=== PATIENT | male | born 1990 | race Caucasian/White ===

== ENCOUNTER 2017-05-29 15:59 | Emergency (ER) | payer OTHER ==
[~2017-05-29] VITALS: Ht 185.4 cm; Wt 111.2 kg
[~2017-05-29 15:59] MED LIST: ADDERALL XR 2020 MG PO; BACTRIM,SEPT1 TABLET PO; BENTYL20 MG PO; CELEXA40 MG PO; CLEOCIN300 MG PO; ENDOCET 5-3251 EACH PO; KEFLEX500 MG PO; LOMOTIL TABLET1 EACH PO; NAPROSYN500 MG PO; PERCOCET 5/31 TABLET PO; PRILOSEC40 MG PO; PROMETHAZINE HC25 M1 PO; RISPERDAL2 M1 PO; SEROQUEL100 MG PO; TRAMADOL HCL50 MG PO; ULTRAM50 MG PO; VENTOLIN HFA18 GM IH
[2017-05-29] MEDS ORDERED: PREDNISONE20 MG PO (17:26)
[2017-05-29 17:53] VITALS: BP 142/72
== END 2017-05-29 17:55 | disposition home or self-care (01) ==
LOC: EME 15:59
DX: T63.441A Toxic effect of venom of bees, accidental (unintentional), initial encounter (principal); R20.0 Anesthesia of skin; L29.9 Pruritus, unspecified; J45.909 Unspecified asthma, uncomplicated; F90.9 Attention-deficit hyperactivity disorder, unspecified type; F31.9 Bipolar disorder, unspecified; F17.200 Nicotine dependence, unspecified, uncomplicated; Z88.0 Allergy status to penicillin
CPT/HCPCS: 99281; 99284; J0171; J2930; J7644

== ENCOUNTER 2017-07-05 17:36 | Inpatient (IN) | payer OTHER ==
[~2017-07-05] VITALS: Ht 190.5 cm; Wt 108.0 kg
[~2017-07-05 17:36] MED LIST changes: +PREDNISONE20 MG PO
[2017-07-05 20:29] LABS: BASOPHIL COUNT 0.1 K/uL (0-0.1); EOSINOPHIL (%) 0.5 % (0-5); EOSINOPHIL COUNT 0.1 K/uL (0-0.3); HEMATOCRIT 46.5 % (38.0-50.0); IMMATURE GRANULOCYTE (%) 0.5 % (0.0-0.7); IMMATURE GRANULOCYTE COUNT 0.1 K/uL; INSTRUMENT ABS NEUTROPHIL CT 10.6 K/uL; LYMPHOCYTE COUNT 2.3 K/uL (1.0-2.8); MCH 29.5 PG (29.0-34.0); MCHC 33.3 G/DL (30.0-36.0); MCV 88.4 FL (86-99); MONOCYTE (%) 7.2 % (3-12); NEUTROPHIL (%) 75.3 % (45-76); NEUTROPHIL COUNT 10.6 K/uL (1.8-6.4); PLATELET COUNT 198 K/uL (156-360); RBC DIS.WIDTH-CV 13.2 % (11.8-14.6); RBC DIS.WIDTH-SD 42.8 % (39-53); RED BLOOD COUNT 5.26 M/uL (4.00-5.50); WHITE BLOOD COUNT 14.1 K/uL (4.1-10.2)
[2017-07-05 20:42] LABS: AMPHETAMINE NEGATIVE (500 ng/mL); BARBITURATES NEGATIVE (200 ng/mL); BENZODIAZEPINES NEGATIVE (150 ng/mL); COCAINE NEGATIVE (150 ng/mL); INTERNAL CONTROLS VALID? YES; METHADONE NEGATIVE (200 ng/mL); METHAMPHETAMINE NEGATIVE (500 ng/mL); OPIATES (MORPHINE) NEGATIVE (100 ng/mL); OXYCODONE NEGATIVE (100 ng/mL); PHENCYCLIDINE NEGATIVE (25 ng/mL); PROPOXYPHENE NEGATIVE (300 ng/mL); THC CANNABINOIDS NEGATIVE (50 ng/mL); TRICYCLIC ANTIDEPRESSANTS NEGATIVE (300 ng/mL)
[2017-07-05 20:45] LABS: CHLORIDE 106 mEq/L (99-109); POTASSIUM 3.6 mEq/L (3.7-5.4); SODIUM 139 mEq/L (136-147)
[2017-07-05 20:48] LABS: GLUCOSE 89 mg/dL (70-99)
[2017-07-05 20:49] LABS: ANION GAP 11 MEQ/L (2-14); TOTAL BILIRUBIN 1.2 mg/dL (0.0-1.0)
[2017-07-05 20:50] LABS: SERUM ETHYL ALCOHOL < 10 mg/dL
[2017-07-05 20:51] LABS: ALKALINE PHOSPHATASE 89 IU/L (3-129); GFR ESTIMATE (CALCULATED) > 59 mL/min/
[2017-07-05 20:52] LABS: UREA NITROGEN (BUN) 11 mg/dL (9-23)
[2017-07-06 07:58] VITALS: BP 146/61
[2017-07-06] MEDS ORDERED: BUSPAR10 MG PO (08:03)
[2017-07-06] MEDS ORDERED: WELLBUTRIN SR100 MG PO (08:04)
[2017-07-06] MEDS ORDERED: MOBIC7.5 MG PO (08:05)
[2017-07-06] MEDS ORDERED: LEXAPRO10 MG PO (08:05)
[2017-07-06] MEDS ORDERED: AMBIEN5 MG PO (08:06)
[2017-07-06] MEDS ORDERED: PROAIR HFA8.5 GM IH (08:07)
[2017-07-06] MEDS ORDERED: TRILEPTAL150 MG PO (08:07)
[2017-07-06] MEDS ORDERED: ADVAIR 100/501 DISK IH (08:08)
[2017-07-06 12:38] VITALS: BP 137/71
[2017-07-06 15:22] VITALS: BP 133/73
[2017-07-07 07:43] VITALS: BP 122/65
[2017-07-07] MEDS ORDERED: QUETIAPINE FUM200 MG PO (08:59)
[2017-07-07] MEDS ORDERED: DIVALPROEX SOD250 MG PO (08:59)
== END 2017-07-07 09:14 | disposition home or self-care (01) | DRG 885 ==
LOC: EME 17:36 → EDOF 07-06 01:28 → 1WEST 07-06 01:28 → ENRESERV 07-06 01:34 → 1WEST 07-06 01:47
PROVIDERS: Emergency Medicine
DX: F31.9 Bipolar disorder, unspecified (principal); F90.9 Attention-deficit hyperactivity disorder, unspecified type; R48.0 Dyslexia and alexia; J45.909 Unspecified asthma, uncomplicated; F17.200 Nicotine dependence, unspecified, uncomplicated; R55 Syncope and collapse; T50.905A Adverse effect of unspecified drugs, medicaments and biological substances, initial encounter; Z88.0 Allergy status to penicillin; Z88.6 Allergy status to analgesic agent; Z91.5 Personal history of self-harm
CPT/HCPCS: 80053; 85025; 90837; 99202; 99281; 99285; G0480

== ENCOUNTER 2018-02-26 23:16 | Emergency (ER) | payer OTHER ==
[~2018-02-26] VITALS: Ht 190.5 cm; Wt 101.0 kg
[~2018-02-26 23:16] MED LIST changes: +ADVAIR 100/501 DISK IH; +AMBIEN5 MG PO; +BUSPAR10 MG PO; +DIVALPROEX SOD250 MG PO; +LEXAPRO10 MG PO; +MOBIC7.5 MG PO; +PROAIR HFA8.5 GM IH; +QUETIAPINE FUM200 MG PO; +TRILEPTAL150 MG PO; +WELLBUTRIN SR100 MG PO
[2018-02-26] MEDS ORDERED: ULTRACET1 TABLET PO (23:54)
[2018-02-26] MEDS ORDERED: KEFLEX500 MG PO (23:54)
[2018-02-26] MEDS ORDERED: BACTROBAN OINTM22 GM TP (23:54)
[2018-02-27 00:31] VITALS: BP 128/79
== END 2018-02-27 00:36 | disposition home or self-care (01) ==
LOC: EME 23:16
DX: L02.211 Cutaneous abscess of abdominal wall (principal); Z48.00 Encounter for change or removal of nonsurgical wound dressing; Z88.6 Allergy status to analgesic agent; Z88.0 Allergy status to penicillin
CPT/HCPCS: 87070; 87075; 87077; 87147; 87186; 87205; 99281; 99284